=== PATIENT | male | born 1985 | race Two or more races ===

== ENCOUNTER 2022-04-04 14:34 | Outpatient (CLI) | payer OTHER | END 2022-04-04 23:59 | disposition home or self-care (01) | LOC: LAB 14:34 | PROVIDERS: ATTEND Specialist | DX: Z01.812 Encounter for preprocedural laboratory examination (principal); Z20.822 Contact with and (suspected) exposure to COVID-19 | CPT/HCPCS: U0003; C9803 ==

== ENCOUNTER 2022-04-08 06:17 | Day surgery (SDC) | payer OTHER ==
--- NOTE | 2022-04-08 07:15 | NUR ---
RN NOTES PATIENT IN ROOM. PREPPED AND AWAITING FOR SURGERY. A/O X4. ON RA WITH BREATHING EVEN AND UNLABORED. IN NO ACUTE DISTRESS AT THE MOMENT. VSS. NKA OTHER THAN SHELLFISH. PATIENT ABLE TO VERBALIZE SURGICAL PLAN AND ALL CONSENTS SIGNED. BELONGINGS ACCOUNTED FOR AND DOCUMENTS SIGNED. SAFETY PRECAUTIONS IN PLACE. WILL CONTINUE MONITORING
--- NOTE | 2022-04-08 07:52 | NUR ---
RN NOTES PATIENT TRANSFERRED DOWN TO OR FOR PROCEDURE VIA BED.
[2022-04-08] MEDS ORDERED: BUPIVACAINE 0.5 % PF 150 MG/30 ML VIAL ONE (08:33)
[2022-04-08] MEDS ORDERED: methylPREDNISolone ACETATE 80 MG/ML VIAL ONE (08:34)
[2022-04-08] MEDS ORDERED: FENTANYL PF 100MCG/2ML AMPUL ONE (08:42)
[2022-04-08] MEDS ORDERED: DEXAMETHASONE SOD PHOSPHATE 4 MG/ML VIAL ONE (08:42)
[2022-04-08] MEDS ORDERED: SUCCINYLCHOLINE CHLORIDE 20 MG/ML VIAL ONE (08:42)
[2022-04-08] MEDS ORDERED: MENTHOL/CETYLPYRD (CEPACOL) 1 LOZ LOZENGE ONE (09:53)
--- NOTE | 2022-04-08 10:22 | NUR ---
RN NOTES RECEIVED PATIENT FROM OR NURSE IN STABLE CONDITION. ON RA WITH BREATHING EVEN AND UNLABORED. NO PAIN EXPRESSED AT THIS TIME. R HAND G#22 INTACT AND PATENT WITH NO FLUIDS RUNNING AT THIS TIME. DRESSING AT RIGHT KNEE C/D/I. SKIN WARM TO TOUCH ON BILATERAL UPPER AND LOWER EXT. PALPABLE STRONG PULSES BILATERAL LOWER EXT. SOME SWELLING NOTED TO THE RIGHT FOOT. ABLE TO MOVE RIGHT FOOT DIGITS. ORDERS RECEIVED FROM OR MD AND CARRIED OUT. SAFETY PRECAUTIONS IN PLACE. WILL CONTINUE TO MONITOR
[2022-04-08] MEDS ORDERED: HYDROCODONE/APAP 5/325MG TABLET PO PRN (12:30)
[2022-04-08] MEDS: HYDROCODONE/APAP 5/325MG TABLET PO PRN (12:36)
--- NOTE | 2022-04-08 13:29 | NUR ---
REHANGER NOTES PATIENT MEDICALLY STABLE AND COMFORTABLE FOR DISCHARGE. VSS. POST OP INSTRUCTIONS GIVEN AND PATIENT VERBALIZED UNDERSTANDING OF CARE. WILL REMOVE DRESSING IN 48 HOURS AND FOLLOW UP WITH PRIMARY IN ONE WEEK. ORDER TO FOLLOW UP WITH ORDER IN [address] TURPIN OFFICE PHONE NUMBER WAS GIVEN TO PATIENT FOR ANY FURTHER QUESTIONS. IV ACCESS REMOVED AND ID BAND REMOVED. PATIENT LEFT HOSPITAL ACCOMPANIED BY IN PRIVATE CAR.
== END 2022-04-08 19:00 | disposition home or self-care (01) ==
LOC: DS 06:17 → MED 06:18 → UNDOADMIN 06:18 → UNDODISIN 13:30 → DS 19:00
PROVIDERS: ATTEND Specialist
DX: M22.41 Chondromalacia patellae, right knee (principal); Z91.013 Allergy to seafood; I10 Essential (primary) hypertension; B20 Human immunodeficiency virus [HIV] disease; Z98.890 Other specified postprocedural states; Z79.899 Other long term (current) drug therapy
CPT/HCPCS: 29877; J0690; J3490 ×2; J1040; J1100 ×2; J2704; J3010; J0330; J2405; J7030; A6253; A4217; G0378